=== PATIENT | male | born 1965 | race Caucasian/White ===

== ENCOUNTER → 2024-08-30 11:31 | Outpatient (REF) | payer SELFPAY | LOC: HWRAD 11:31 | PROVIDERS: ATTENDING PHYSICIAN Family Medicine | DX: E78.2 Mixed hyperlipidemia (principal) | CPT/HCPCS: 75571 ==

== ENCOUNTER 2024-10-20 06:23 | Day surgery (SDC) | payer OTHER, SELFPAY | END 2024-10-20 11:56 | disposition home or self-care (01) | LOC: GI 06:23 | PROVIDERS: ATTENDING PHYSICIAN Internal Medicine | DX: Z12.11 Encounter for screening for malignant neoplasm of colon (principal); K64.9 Unspecified hemorrhoids; K57.30 Diverticulosis of large intestine without perforation or abscess without bleeding | CPT/HCPCS: G0121 ==